=== PATIENT | male | born 1955 | race African-American/Black ===

== ENCOUNTER → 2018-10-21 | Outpatient (CLI) | payer BC ==
[2015-12-08 07:05] VITALS: BP 188/88
[~2018-10-21] MED LIST: CYCL10TA2 PO; NAPR250T6 PO; OXYC1TAB15 PO
--- NOTE | 2018-10-21 15:31 | KCIC ---
MRI Lumbar Spine without contrast History: Sciatica, low back pain for over one year, new right-sided low back pain into the right leg Technique: Multiplanar, multi sequential noncontrast MR imaging was performed of the lumbar spine. Comparison: None Findings: There is likely transitional anatomy of the lumbar spine. For the purpose of this report, there is assumption of 5 lumbar type vertebral bodies, grade 1 anterior spondylolisthesis at what is considered L5-S1. There is diffuse nonspecific heterogeneity of marrow signal on T1 and T2 sequences. There is small focus of increased STIR signal of the S1 vertebral body about 0.6 cm. There is mild edema of the anterior, superior corners of L4 and L2 and also of the inferior endplates of L3 and L1. There is moderate degenerative disc disease at L3-4 and to lesser degree at L4-5 and L5-S1.There is some edema associated with the facet articulations at L5-S1 greater on the left and also on the left at L3-4 likely reactive/degenerative in etiology. There is a T2 hyperintense lesion of the visualized right kidney about 2.2 cm, statistically more likely a cyst. L1-L2: There is very minimal disc osteophyte complex and bulge without significant neural impingement or spinal stenosis. There is minimal narrowing of the right neural foramen by facet, left neural foramen not significantly narrowed. L2-L3: There is moderate facet hypertrophic change and minimal buckling of the ligamentum flavum. Spinal canal and neural foramina are adequate. L3-L4: There is minimal disc osteophyte complex and bulge. There is mild prominence of posterior epidural fat centrally and mild buckling of the ligamentum flavum. There is moderate facet hypertrophic change. There is mild indentation upon the ventral thecal sac without spinal stenosis. There is [id number] narrowing of the left neural foramen by disc osteophyte complex and facet, disc osteophyte complex near the extraforaminal left L3 nerve root without significant displacement. There is mild narrowing of the right neural foramen. L4-L5: There is minimal disc osteophyte complex and bulge. There is mild prominence of posterior epidural fat centrally. There is moderate facet hypertrophic change and mild buckling of the ligamentum flavum. There is moderate narrowing of the left neural foramen with effacement of perineural fat surrounding the exiting left L4 nerve root by disc osteophyte complex also near the extraforaminal left L4 nerve root without displacement. There is also moderate to severe narrowing of the right neural foramen primarily from disc osteophyte complex in combination with ligamentum flavum, disc osteophyte complex and bulge also near the extraforaminal right L4 nerve root without significant displacement. Spinal canal is adequate. L5-S1: There is severe facet hypertrophic change and mild buckling of the ligamentum flavum. There is mild narrowing of the far left lateral recess. There is partial uncovering of the posterior aspect of the disc due to spondylolisthesis. There is moderate left and moderate to severe right neural foramina compromise, contact of undersurfaces exiting L5 nerve roots greater on the right. Impression: 1. There is likely transitional anatomy of the lumbar spine, grade 1 spondylolisthesis at what is considered L5-S1 at which there is facet degenerative change. There is some edema associated with the facet articulations at L5-S1 greater on the left likely reactive/degenerative in etiology. 2. There is lumbar neural foramina compromise as stated most notable right greater than left at L5-S1 and L4-5 and to a lesser degree on the left at L3-4. 3. There is grade 1 anterior spondylolisthesis L5-S1, multilevel lumbar facet degenerative change. 4. There is nonspecific diffuse heterogeneity of the marrow signal, could be component of hyperplastic red marrow as can be associated chronic or systemic stress reaction or hypoxia unless there is suspicion or history of other marrow disorder. There is a small focus of nonspecific edema of the S1 vertebral body otherwise difficult to accurately characterize. 5. There is moderate degenerative disc disease L3-4 and to lesser degree at L4-5 and L5-S1, mild endplate edema likely reactive/degenerative in etiology. 6. There is likely cyst of the right kidney. Electronically signed by: Cam New MD (10/21/2018 3:27 PM) [id number]
== END | disposition home or self-care (01) ==
LOC: KCIC MRI 13:29
PROVIDERS: ATTEND Physician Assistant Surgical
DX: M43.17 Spondylolisthesis, lumbosacral region (principal); M48.061 Spinal stenosis, lumbar region without neurogenic claudication; M51.37 Other intervertebral disc degeneration, lumbosacral region; M25.78 Osteophyte, vertebrae; N28.1 Cyst of kidney, acquired
CPT/HCPCS: 72148

== ENCOUNTER → 2018-11-28 | Outpatient (CLI) | payer BC ==
[2015-12-08 07:05] VITALS: BP 188/88
--- NOTE | 2018-11-28 11:19 | KCIC ---
EXAM: Lumbar spine, flexion and extension. HISTORY: Pain. COMPARISON: MRI dated 10/21/2018. FINDINGS: Lateral flexion, extension and neutral views of the lumbar spine are obtained. There is a transitional lumbosacral segment, considered a lumbarized S1 segment with rudimentary S1-S2 disc for this dictation. This is in keeping with the number system utilized on the recent comparison MRI. Based on this numbering system, there is grade 1 anterolisthesis of L5 on S1, measuring 4 mm in neutral position. This increases to 9 mm with flexion. There is 4 mm retrolisthesis of L4 on L5 which reduces to normal alignment with flexion and does not change with extension. There is degenerative endplate remodeling at all levels. No fracture is seen. There is facet arthropathy predominantly the lower lumbar levels. IMPRESSION: 1. Transitional lumbosacral segment, considered S1 for this dictation. 2. Grade 1 anterolisthesis of L5 on S1 which increases with flexion and mild retrolisthesis of L4 on L5 which reduces to normal alignment with flexion. 2. Multilevel degenerative change throughout the lumbar spine, primarily at the lower lumbar levels. Electronically signed by: January Samano MD (11/28/2018 11:16 AM) [email or web address]
== END | disposition home or self-care (01) ==
LOC: KCIC 10:29
PROVIDERS: ATTEND Neurological Surgery
DX: M43.17 Spondylolisthesis, lumbosacral region (principal); M51.36 Other intervertebral disc degeneration, lumbar region; M12.88 Other specific arthropathies, not elsewhere classified, other specified site
CPT/HCPCS: 72100